=== PATIENT | female | born 1955 | race Caucasian/White ===

== ENCOUNTER → 2017-02-03 | Outpatient (CLI) | payer OTHER ==
[~2017-02-03] MED LIST: ACYC-114 PO; ASCO-96 PO; LEVO125T PO; MAGN400T7 PO; MELA1TAB7 PO; MELO-184 PO; VALE250C PO; ZOLP1.75 PEG
[2017-02-03 12:29] LABS: BLOOD UREA NITROGEN 11 mg/dL (7-18)
[2017-02-03 12:39] LABS: ASPARTATE AMINO TRANSFERASE 24 U/L (15-37)
== END | disposition home or self-care (01) ==
LOC: LAB 11:50
PROVIDERS: ATTEND Nurse Practitioner Family
DX: E03.9 Hypothyroidism, unspecified (principal); E55.9 Vitamin D deficiency, unspecified; E78.5 Hyperlipidemia, unspecified; G47.00 Insomnia, unspecified; R73.09 Other abnormal glucose
CPT/HCPCS: 36415; 80053; 80061; 82306; 83036; 84439; 84443; 84481

== ENCOUNTER 2017-02-27 15:30 | Inpatient (IN) | payer OTHER ==
[~2017-02-27] VITALS: Ht 162.6 cm; Wt 58.0 kg
[2017-03-06] MEDS ORDERED: LACTATED RINGERS 1,000 ML IV SCH (10:29)
[2017-03-06] MEDS ORDERED: FENTANYL PF 250 MCG/5ML ONE (11:24)
[2017-03-06] MEDS ORDERED: MIDAZOLAM 1 MG/ML, 2ML ONE (11:24)
[2017-03-06] MEDS ORDERED: KETAMINE 10 MG/ML, 20ML ONE ×2 (11:24→16:00)
[2017-03-06] MEDS ORDERED: REMIFENTANIL 2 MG ONE (12:14)
[2017-03-06] MEDS ORDERED: OXYcodone 5 MG/5 ML ORAL.SOL UDC PO PRN (13:30)
[2017-03-06] MEDS ORDERED: ACETAMINOPHEN 325 MG TABLET PO PRN (13:30)
[2017-03-06] MEDS ORDERED: MEPERIDINE/PF 25MG/0.5ML IVPush PRN (13:30)
[2017-03-06] MEDS ORDERED: PROMETHAZINE 25 MG/ML, 1ML IV PRN (13:30)
[2017-03-06] MEDS ORDERED: BUPIVACAINE/PF-EPI 0.5% 1:200K INFIL ONE (13:31)
[2017-03-06] MEDS ORDERED: THROMBIN 5,000 UNIT VIAL TP ONE (13:32)
[2017-03-06] MEDS ORDERED: BACITRACIN 50,000 UNIT IRRIG ONE (13:32)
[2017-03-06] MEDS ORDERED: FENTANYL PF 100 MCG/2ML ONE (15:02)
[2017-03-06] MEDS ORDERED: ACETAMINOPHEN 650 MG/20.3 ML UDC ONE (15:03)
[2017-03-06] MEDS ORDERED: ACETAMINOPHEN 325 MG/10.15 ML UDC ONE (15:03)
[2017-03-06] MEDS ORDERED: OXYcodone 5 MG/5 ML ORAL.SOL UDC ONE (15:03)
[2017-03-06] MEDS: FENTANYL PF 100 MCG/2ML IV PRN ×2 (15:05→15:27)
[2017-03-06] MEDS ORDERED: HYDROmorphone 1 MG/ML, 1ML ONE (15:30)
[2017-03-06] MEDS: HYDROmorphone 1 MG/ML, 1ML IV PRN ×2 (15:45→16:00)
[2017-03-06] MEDS ORDERED: ROCURONIUM 10 MG/ML ONE (16:00)
[2017-03-06] MEDS ORDERED: CEFAZOLIN 1,000 MG ONE (16:00)
[2017-03-06] MEDS ORDERED: EPHEDRINE 50 MG/ML, 1ML ONE (16:00)
[2017-03-06] MEDS ORDERED: SUCCINYLCHOLINE 20 MG/ML, 10ML ONE (16:00)
[2017-03-06] MEDS ORDERED: PROPOFOL 10 MG/ML, 20ML ONE (16:00)
[2017-03-06] MEDS ORDERED: DEXAMETHASONE 4 MG/ML, 1ML ONE (16:00)
[2017-03-06] MEDS ORDERED: ONDANSETRON 2MG/ML, 2ML ONE (16:00)
[2017-03-06] MEDS ORDERED: ONDANSETRON 2MG/ML, 2ML IV PRN (17:00)
[2017-03-06] MEDS ORDERED: ACYCLOVIR 400 MG TABLET PO PRN (17:00)
[2017-03-06] MEDS ORDERED: morphine SULFATE 10 MG/ML, 1ML IV PRN (17:00)
[2017-03-06] MEDS ORDERED: PROMETHAZINE 25 MG/ML, 1ML IM PRN (17:00)
[2017-03-06] MEDS ORDERED: DIAZEPAM 5 MG TABLET PO PRN ×2 (17:00→18:00)
[2017-03-06] MEDS ORDERED: BISACODYL 10 MG SUPP PR PRN (17:00)
[2017-03-06] MEDS ORDERED: DIPHENHYDRAMINE 50 MG/ML, 1ML IVPush PRN (17:00)
[2017-03-06] MEDS ORDERED: DIAZEPAM 5 MG/ML, 2ML IV PRN ×2 (17:00→18:00)
[2017-03-06] MEDS ORDERED: DIPHENHYDRAMINE 25 MG CAPSULE PO PRN (17:00)
[2017-03-06] MEDS ORDERED: MAGNESIUM HYDROXIDE 8%, 30ML UDC PO PRN (17:00)
[2017-03-06] MEDS ORDERED: HYDROcodone/APAP 5/325 TABLET PO PRN (17:00)
[2017-03-06] MEDS ORDERED: TIZANIDINE 4MG TABLET PO PRN (17:00)
[2017-03-06 19:18] VITALS: BP 113/70
[2017-03-06] MEDS: OXYcodone/APAP 5/325MG TABLET PO PRN ×2 (19:33→23:36)
[2017-03-06] MEDS: CEFAZOLIN PMX 1GM/50ML 50 ML IVPB SCH (20:12)
[2017-03-06] MEDS ORDERED: MAGNESIUM OXIDE 400 MG TABLET PO SCH (21:00)
[2017-03-07 00:25] VITALS: BP 123/82
[2017-03-07] MEDS: OXYcodone/APAP 5/325MG TABLET PO PRN ×2 (05:01→09:37)
[2017-03-07] MEDS: CEFAZOLIN PMX 1GM/50ML 50 ML IVPB SCH (05:01)
[2017-03-07 05:12] VITALS: BP 107/66
[2017-03-07] MEDS ORDERED: LEVOTHYROXINE 125 MCG TABLET PO SCH (06:00)
[2017-03-07 07:18] VITALS: BP 108/69
[2017-03-07] MEDS ORDERED: SENNA/DOCUSATE TABLET PO SCH (09:00)
[2017-03-07] MEDS ORDERED: OXYC-302 PO (10:40)
[2017-03-07] MEDS ORDERED: TIZA4TAB9 PO (10:42)
== END 2017-03-07 12:15 | disposition home or self-care (01) | DRG 472 ==
LOC: ORIP 03-06 10:04 → 4NOR 03-06 16:46 → DCLOUNGE 03-07 11:35
PROVIDERS: ADMIT Neurological Surgery; ATTEND Neurological Surgery
PROC: 01N10ZZ Release Cervical Nerve, Open Approach (ICD-10-PCS; 2017-03-06)
PROC: 0RG40K1 Fusion of Cervicothoracic Vertebral Joint with Nonautologous Tissue Substitute, Posterior Approach, Posterior Column, Open Approach (ICD-10-PCS; principal; 2017-03-06 13:00)
DX: M47.12 Other spondylosis with myelopathy, cervical region (principal); M50.00 Cervical disc disorder with myelopathy, unspecified cervical region; M19.90 Unspecified osteoarthritis, unspecified site; E03.9 Hypothyroidism, unspecified; Z88.6 Allergy status to analgesic agent; Z87.891 Personal history of nicotine dependence; Z83.3 Family history of diabetes mellitus; Z80.9 Family history of malignant neoplasm, unspecified; Z82.3 Family history of stroke; Z82.61 Family history of arthritis; Z79.899 Other long term (current) drug therapy
CPT/HCPCS: 72040; 95938; 95941; C1713; J0690; J1100; J1170; J2250; J2405; J2704; J3010; C1762; J0330

== ENCOUNTER → 2017-11-01 | Outpatient (CLI) | payer OTHER ==
[~2017-11-01] MED LIST changes: -MELO-184 PO; +MELO15TA24 PO; +OXYC-302 PO; +TIZA4TAB9 PO
== END | disposition home or self-care (01) ==
LOC: CFH 08:04
PROVIDERS: ATTEND Family Medicine
DX: Z12.31 Encounter for screening mammogram for malignant neoplasm of breast (principal)
CPT/HCPCS: 77067